=== PATIENT | female | born 2000 | race Caucasian/White ===

== ENCOUNTER 2021-05-19 15:58 | Emergency (ER) | payer MEDICAID ==
[~2021-05-19] VITALS: Ht 165.1 cm; Wt 74.8 kg
[2021-05-19 16:00] VITALS: BP_SYST 110
[2021-05-19] MEDS ORDERED: ASPIRIN 81 MG TAB.CHEW PO ONE (16:15)
[2021-05-19 16:50] LABS: BASOPHILS % (AUTO) 0.3 % (0.0-2.0); EOSINOPHILS # (AUTO) 0.1 K/uL (0.0-0.4); HEMATOCRIT 38.4 % (36-48); HEMOGLOBIN 12.7 g/dL (12.0-16.0); LYMPHOCYTES # (AUTO) 1.5 K/uL (1.0-5.5); LYMPHOCYTES % (AUTO) 17.1 % (20.5-51.5); MEAN CORPUSCULAR HEMOGLOBIN 28 pg (27-31); MEAN CORPUSCULAR HGB CONC 33 % (32-36); MEAN CORPUSCULAR VOLUME 85 fL (79.0-98.0); MONOCYTES # (AUTO) 0.7 K/uL (0.0-1.0); NEUTROPHILS # (AUTO) 6.5 K/uL (1.8-7.7); NEUTROPHILS % (AUTO) 73.6 % (40.0-70.0); PLATELET COUNT (AUTO) 251 K/uL (130-430); RED BLOOD CELL COUNT(AUTO) 4.52 MIL/uL (4.2-6.2); WHITE BLOOD COUNT (AUTO) 8.8 K/uL (4.8-10.8)
[2021-05-19 17:11] LABS: CREATININE 0.82 mg/dL (0.55-1.30); POTASSIUM 4.4 mmol/L (3.5-5.1)
[2021-05-19 17:27] LABS: ALBUMIN 3.9 g/dL (3.4-4.8); TOTAL BILIRUBIN 0.2 mg/dL (0.0-1.0)
[2021-05-19 18:50] VITALS: BP_SYST 122
== END 2021-05-19 18:50 | disposition home or self-care (01) ==
LOC: SED 15:58
DX: R07.89 Other chest pain (principal); F41.9 Anxiety disorder, unspecified
CPT/HCPCS: 36415; 71045; 80053; 81025; 83880; 84484; 84702; 85025; 85379; 93005; 99285

== ENCOUNTER 2021-10-04 11:28 | Emergency (ER) | payer MEDICAID, SELFPAY ==
[~2021-10-04] VITALS: Ht 165.1 cm; Wt 77.1 kg
[2021-10-04 12:01] VITALS: BP_SYST 92
[2021-10-04] MEDS ORDERED: IBUPROFEN 600 MG TABLET PO ONE (13:00)
[2021-10-04] MEDS ORDERED: IBUP-1969 PO (13:10)
[2021-10-04 13:42] VITALS: BP_SYST 125
== END 2021-10-04 14:00 | disposition home or self-care (01) ==
LOC: SED 11:28
DX: B34.9 Viral infection, unspecified (principal); R05.9 Cough, unspecified; F32.A Depression, unspecified; F41.9 Anxiety disorder, unspecified; Z20.822 Contact with and (suspected) exposure to COVID-19; Z79.899 Other long term (current) drug therapy
CPT/HCPCS: 36415; 71045; 93005; 99285

== ENCOUNTER 2022-07-27 13:34 | Emergency (ER) | payer MEDICAID ==
[~2022-07-27] VITALS: Ht 165.1 cm; Wt 81.6 kg
[~2022-07-27 13:34] MED LIST: IBUP-1969 PO
[2022-07-27 13:39] VITALS: BP_SYST 126
[2022-07-27 16:24] LABS: STREPTOCOCCUS A SCREEN (RAPID) NEGATIVE (NEGATIVE)
[2022-07-27] MEDS ORDERED: PSEU30TA36 PO (17:11)
[2022-07-27] MEDS ORDERED: IBUP-1969 PO (17:11)
[2022-07-27 17:32] VITALS: BP_SYST 127
== END 2022-07-27 17:32 | disposition home or self-care (01) ==
LOC: SED 13:34
DX: J02.9 Acute pharyngitis, unspecified (principal); R05.9 Cough, unspecified; Z88.8 Allergy status to other drugs, medicaments and biological substances; Z79.899 Other long term (current) drug therapy; Z20.822 Contact with and (suspected) exposure to COVID-19
CPT/HCPCS: 36415; 86308-TC; 86403; 87081; 99283